=== PATIENT | female | born 1945 | race Caucasian/White ===

== ENCOUNTER 2019-08-13 18:37 | Emergency (ER) | payer MEDICARE ==
[2019-08-13] MEDS ORDERED: Ketorolac 30 MG/ML SDV IM ONE (19:04)
--- NOTE | 2019-08-13 19:29 | EDM.PDOC ---
ED HPI GENERAL MEDICAL PROBLEM - General Chief Complaint: Upper Extremity Injury/Pain Stated Complaint: FALL Time Seen by Provider: 08/13/19 19:00 Source of Information: Reports: Patient, Family History Limitations: Reports: No Limitations - History of Present Illness INITIAL COMMENTS - FREE TEXT/NARRATIVE: This patient presents to the ED for evaluation of right shoulder pain. She states she was entering a store when she tripped on the door frame and fell forward. She is complaining of right shoulder pain. She also has significant swelling of both eyes; significant bruising to right eye and moderate bruising to right eye. She states she did not lose consciousness and is able to recount the details of the fall. She denies headache, nausea, vomiting. She admits to having 2 alcohol drinks prior to the fall. Onset: Today, Sudden Onset Date: 08/13/19 Onset Time: 17:30 Location: Reports: Face, Upper Extremity, Right - Related Data Allergies Allergy/AdvReac Type Severity Reaction Status Date / Time No Known Allergies Allergy Verified 08/13/19 19:17 Home Meds: Home Meds . [Unable to Verify Home Med List] 08/13/19 [History] Review of Systems - Review of Systems Review Of Systems: See Below Constitutional: Reports: No Symptoms Eyes: Reports: Other (bruising and swelling). Denies: Blurred Vision, Pain, Photophobia, Vision Change Ears: Reports: No Symptoms Nose: Reports: No Symptoms Mouth/Throat: Reports: No Symptoms Respiratory: Denies: Shortness of Breath, Wheezing, Cough Cardiovascular: Reports: No Symptoms GI/Abdominal: Reports: No Symptoms Musculoskeletal: Reports: Shoulder Pain Skin: Reports: Bruising Neurological: Reports: No Symptoms ED EXAM, GENERAL - Physical Exam Exam: See Below Exam Limited By: No Limitations General Appearance: Alert, WD/WN, No Apparent Distress Eye Exam: Bilateral Eye: Normal Fundi, PERRL, Other (Significant swelling and bruising of right eye; moderate swelling and bruising of left eye. Ocular movements intact.) Ears: Normal External Exam Nose: Normal Inspection Throat/Mouth: Normal Inspection, Normal Teeth Head: Atraumatic, Normocephalic Neck: Normal Inspection, Supple, Non-Tender, Full Range of Motion Respiratory/Chest: No Respiratory Distress Extremities: Normal Inspection, Joint Swelling (small amount swelling over AC joint; no discoloration or deformity. Tenderness with palpation of AC joint.), Limited Range of Motion (right shoulder) Skin Exam: Warm, Dry Course - Vital Signs Last Recorded V/S: Last Vital Signs Temp 36.2 C 08/13/19 20:07 Pulse 81 08/13/19 20:07 Resp 20 08/13/19 20:07 BP 147/74 H 08/13/19 20:07 Pulse Ox 94 L 08/13/19 20:07 - Orders/Labs/Meds Orders: Active Orders 24 hr Category Date Time Status Head wo Cont [CT] Stat Exams 08/13/19 19:18 Ordered Shoulder Comp Rt [CR] Stat Exams 08/13/19 19:08 Ordered Meds: Medications Discontinued Medications Generic Name Dose Route Start Last Admin Trade Name Abdielq PRN Reason Stop Dose Admin Hydromorphone HCl 1 mg 08/13/19 19:37 08/13/19 19:47 Dilaudid IM 08/13/19 19:38 1 mg ONETIME ONE Administration Hydromorphone HCl Confirm 08/13/19 19:46 08/13/19 20:01 Dilaudid Administered 08/13/19 19:47 Not Given Dose 2 mg .ROUTE .STK-MED ONE Ketorolac Tromethamine 30 mg 08/13/19 19:04 08/13/19 19:04 Toradol IM 08/13/19 19:05 30 mg ONETIME ONE Administration - Re-Assessments/Exams Free Text/Narrative Re-Assessment/Exam: 08/13/19 20:32 This patient presents for evaluation of right shoulder pain after a fall. CMS is intact distally in the extremity and there are no open injuries. X-rays reveal a transverse fracture of the proximal humerus that does not need reduction at this time. I did consult with Dr. Sabillon from [facility] who suggest placing the patient in a sling to be seen in their office early next week. The patient understands that this need for reduction and /or surgery may change with time and orthopedic consultation. Close orthopedic follow up is indicated in the next 3-4 days. Splint and fracture precautions for home. The patient does have some facial swelling and bruising and a head CT was obtained. This was negative for acute findings. The head to toe trauma exam is otherwise normal at this time and no further trauma workup is needed as I believe there is no signs of serious head, neck, chest, spinal, extremity or abdominal injuries. The patient was educated on natural course of this fracture , provided pain medication, need for increasing gentle activity, and possible complications of fractures. They need to follow up with [facility] early next week. She was given contact information. She should return to the ED over the weekend should she develop any new or concerning symptoms. The patient was stable at the time of discharge and left in the care of her daughter. Departure - Departure Time of Disposition: 20:45 Disposition: Home, Self-Care 01 Condition: Fair Clinical Impression: Fracture of humerus - Discharge Information *PRESCRIPTION DRUG MONITORING PROGRAM REVIEWED*: No Forms: ED Department Discharge, ED Summary Discharge Additional Instructions: Call the [facility] on Friday, August 16 to schedule an appointment. The licensing specialist vocational rehabilitation specialist on Friday was Dr. Sabillon. The clinic phone number is [phone]. Keep the sling in place at all times over the weekend. Apply ice to the fracture site. Rest. Use Vicodin, 1 tablet every 4-6 hours as needed for severe pain. Take ibuprofen, 600 mg 3 times a day for less severe pain. Return to the ED for any problems over the weekend. - My Orders Last 24 Hours: My Active Orders 08/13/19 19:08 Shoulder Comp Rt [CR] Stat 08/13/19 19:18 Head wo Cont [CT] Stat - Assessment/Plan Last 24 Hours: My Active Orders 08/13/19 19:08 Shoulder Comp Rt [CR] Stat 08/13/19 19:18 Head wo Cont [CT] Stat
[2019-08-13] MEDS ORDERED: HYDROmorphone 2 MG/ML SDV IM ONE ×2 (19:37→20:40)
[2019-08-13] MEDS ORDERED: HYDROmorphone 2 MG/ML SDV ONE ×2 (19:46→20:38)
[2019-08-13] MEDS ORDERED: Acetaminophen/HYDROcodone 325-5 MG Tab ONE (20:35)
--- NOTE | 2019-08-15 00:21 | CR ---
CLINICAL DATA: Trauma. RIGHT SHOULDER, 2018: No priors. There is diffuse osteopenia. There is a mildly impacted, mildly displaced, comminuted fracture through the neck and greater tuberosity of the proximal humerus. No other acute abnormalities. Job: [id number] [facility]
--- NOTE | 2019-08-15 00:23 | CT ---
CLINICAL DATA: Trauma. UNENHANCED BRAIN CT 2018: Multislice acquisition was performed. There is diffuse cerebral atrophy. There are mild periventricular lucencies bilaterally consistent with small vessel ischemic change. No masses or mass effect. No intracranial hemorrhage. No evidence of acute or subacute infarct. No osseous abnormalities. IMPRESSION: No acute intracranial abnormalities. [facility] [id number] [facility]
== END 2019-08-13 20:47 | disposition home or self-care (01) ==
LOC: LB.ED 18:37
DX: S42.251A Displaced fracture of greater tuberosity of right humerus, initial encounter for closed fracture (principal); S05.11XA Contusion of eyeball and orbital tissues, right eye, initial encounter; S05.12XA Contusion of eyeball and orbital tissues, left eye, initial encounter; W01.0XXA Fall on same level from slipping, tripping and stumbling without subsequent striking against object, initial encounter
CPT/HCPCS: 70450; 73030; 96372; 99284; A9270; J1170; J1885

== ENCOUNTER → 2019-10-19 | Outpatient (CLI) | payer MEDICARE ==
--- NOTE | 2019-10-20 08:29 | CR ---
Date of Service: 10/19/19 Clinical Data: FRACTURE RIGHT SHOULDER: Comparison made to a prior exam dated 08/13/19. The fracture through the neck and greater tuberosity of the proximal humerus is again seen. No change in alignment or position from the prior study. There is some callus formation across the fracture site. No new abnormalities. [id number] [facility]
== END ==
LOC: LB.DI 13:07
PROVIDERS: ATTEND Physician Assistant
DX: S42.291A Other displaced fracture of upper end of right humerus, initial encounter for closed fracture (principal); S42.251A Displaced fracture of greater tuberosity of right humerus, initial encounter for closed fracture; L84 Corns and callosities; X58.XXXA Exposure to other specified factors, initial encounter
CPT/HCPCS: 73030-RT